=== PATIENT | female | born 1955 | race Caucasian/White ===

== ENCOUNTER → 2016-09-04 | Outpatient (CLI) | payer BC ==
--- NOTE | 2016-09-05 15:16 | MRI ---
EXAM DESCRIPTION: Right shoulder MRI CLINICAL HISTORY: 61 years, Female, IMPINGEMENT SYNDROME RT SHOULDER COMPARISON: None TECHNIQUE: MRI of the right shoulder was performed with multiplanar multi sequence imaging according to our usual protocol. FINDINGS: MRI right shoulder demonstrates advanced glenohumeral osteoarthritis with extensive mixed grade 3/4 chondrosis. Joint space narrowing is prominent. Inferior marginal osteophyte formation is present on both sides of the joint. There is extensive marginal irregularity of the glenoid labrum consistent with maceration of the labrum. There is no displaced fragment. There is a small glenohumeral joint effusion. There is thickening of the capsule in the axillary recess and there is synovial hypertrophy. This is consistent with adhesive capsulitis. Evaluation of the rotator cuff demonstrates extensive interstitial tearing of the infraspinatus and supraspinatus tendons. There is a very high-grade partial-thickness articular surface tear of the distal anterior supraspinatus representing greater than 90% of full-thickness. There is no muscular atrophy of the rotator cuff. Significant AC joint arthropathy is present with capsular thickening and edema. IMPRESSION: 1. Advanced glenohumeral arthritis 2. Adhesive capsulitis 3. High-grade partial-thickness tears of the supraspinatus and infraspinatus 4. Significant AC joint arthropathy Electronically signed by: Simone Grant MD 09/05/2016 3:15 PM CDT
== END ==
LOC: MRI 08:46
PROVIDERS: ATTEND Family Medicine
DX: M75.41 Impingement syndrome of right shoulder (principal); M75.111 Incomplete rotator cuff tear or rupture of right shoulder, not specified as traumatic; M13.811 Other specified arthritis, right shoulder; M75.01 Adhesive capsulitis of right shoulder

== ENCOUNTER → 2016-12-25 | Outpatient (CLI) | payer OTHER ==
--- NOTE | 2016-12-25 11:50 | MAM ---
EXAM DESCRIPTION: 3D Screening BILATERAL CLINICAL HISTORY: 61 yearsFemaleSCREENINGpostmenopausal. Hormone replacement five or more years ago.. COMPARISON: Digital screening bilateral examination 11/07/2015 and 06/29/2014.. No prior reports available. TECHNIQUE: Bilateral CC and MLO projection full-field images, 3-D tomosynthesis digital mammographic technique. Also bilateral synthesized CC/ MLO full-field images. CAD not utilized. FINDINGS: The breast parenchymal density pattern is: Scattered areas of fibroglandular density. No skin thickening or nipple retraction again noted is asymmetry of fibroglandular tissues more prevalent in the retroareolar left breast compared to the same region of the right breast. Bilateral solitary microcalcifications. Small right axillary lymph nodes. No focal, stellate mass or density, focal asymmetry , and no suspicious microcalcifications bilaterally. Stable mammograms compared to June 2014. IMPRESSION: BI-RADS CATEGORY: 2 - BENIGN FINDINGS. FOLLOW UP: Routine digital bilateral screening, one year interval from December 2016. Written communication explaining the findings and follow-up, will be mailed to the patient and referring health care provider. According to the [employer], yearly mammograms are recommended starting at age 40 and continuing as long as a woman is in good health. Any breast change noted on a breast self-exam should be reported promptly to the patient's healthcare provider. Breast MRI is recommended for women with an approximately 20-25% or greater lifetime risk of breast cancer, including women with a strong family history of breast or ovarian cancer and women who have been treated for Hodgkin's disease. A negative mammographic report should not delay tissue diagnosis in patients with significant clinical history or physical findings. Extremely dense breast tissue limits the sensitivity of digital mammography. Electronically signed by: Dick Molina MD 12/25/2016 11:48 AM CDT Workstation: [id number]
== END ==
LOC: MAMMO 10:53
PROVIDERS: ATTEND Family Medicine
DX: Z12.31 Encounter for screening mammogram for malignant neoplasm of breast (principal)

== ENCOUNTER → 2018-02-13 | Outpatient (CLI) | payer OTHER ==
--- NOTE | 2018-02-14 10:53 | MRI ---
MRI right shoulder without contrast INDICATION: Hip pain unspecified date of onset TECHNIQUE: Noncontrast MR imaging right hip FINDINGS: There is a left hip arthroplasty. There is a left convex lumbar scoliosis with asymmetric advanced degenerative disc disease L4-5. There is a moderate right hip effusion with CAM morphology of the femoral neck suggesting chronic femoral acetabular impingement. There is moderate to advanced osteoarthrosis of the right hip with diffuse degenerative chronic labral tear. No osteonecrosis or femoral neck fracture. There is para labral cyst formation and synovitis along the lateral margin of the superior labrum. Gluteal tendons are intact. Ill-defined ligamentum teres. Hamstring tendons are intact. IMPRESSION: Osteoarthrosis of the right hip moderate to advanced with degenerative labral tear and para labral cyst formation Prominent right hip effusion Left hip arthroplasty Asymmetric degenerative disc disease with degenerative endplate changes on the right L4-5 No acute fracture or osteonecrosis Electronically signed by: Romain Negron MD 02/14/2018 10:51 AM CDT
== END ==
LOC: MRI 11:53
PROVIDERS: ATTEND Nurse Practitioner Family
DX: S73.191A Other sprain of right hip, initial encounter (principal); M16.11 Unilateral primary osteoarthritis, right hip; M51.36 Other intervertebral disc degeneration, lumbar region; Z96.642 Presence of left artificial hip joint

== ENCOUNTER 2018-02-24 05:39 | Day surgery (SDC) | payer OTHER ==
[2018-02-24] MEDS ORDERED: LACTATED RINGERS 1,000 ML ONE (05:58)
[2018-02-24] MEDS ORDERED: LACTATED RINGERS 1,000 ML BAG IV ONE (06:45)
[2018-02-24] MEDS ORDERED: LEVALBUTEROL NEBS 1.25 MG/3 ML VIAL NEB ONE (06:46)
[2018-02-24] MEDS ORDERED: fentaNYL CITRATE INJ 50 MCG/ML AMP ONE (06:50)
[2018-02-24] MEDS ORDERED: MIDAZOLAM INJ 2 MG/2 ML VIAL ONE (06:50)
[2018-02-24] MEDS: LIDOCAINE 1% W/ EPINEPHRINE 20 ML VIAL INJ ONE ×2 (07:14→07:15)
[2018-02-24] MEDS: BUPIVACAINE 0.25% INJ 30 ML VIAL INJ ONE ×2 (07:14→07:15)
[2018-02-24] MEDS: methylPREDNISolone ACETATE 80 MG/ML VIAL ONE ×2 (07:14→07:15)
[2018-02-24 07:33] VITALS: TEMP 96.8
[2018-02-24 08:21] VITALS: BP 103/68; O2SAT 97
[2018-02-24] MEDS ORDERED: LIDOCAINE 1% 10 ML VIAL INJ ONE (10:00)
[2018-02-24] MEDS ORDERED: PROPOFOL 200 MG/20 ML VIAL IV ONE (10:00)
--- NOTE | 2018-03-04 08:35 | OP ---
DATE OF PROCEDURE: 02/24/18 PREOPERATIVE DIAGNOSIS: 1. Osteoarthritis of the hip. POSTOPERATIVE DIAGNOSIS: 1. Osteoarthritis of the hip. PROCEDURE: 1. Intraarticular injection. SURGEON: Jean-Claude Solano MD. SET UP OPERATOR TOOL: Dick Yap CST, SA-C. ANESTHESIA: Conscious sedation. COMPLICATIONS: None. FINDINGS: Advanced arthritis of the hip. INDICATION: Emilia has a history of hip pain that has been identified as coming from hip arthritis. She has had contralateral hip replacement in the past. She has tried conservative measures with her current issues, however, has failed to gain relief and continues to have pain that is affecting her activities on a daily basis. Because of the effects on her daily activities, she has requested hip injection. After discussing the risks, benefits and alternatives to that, the patient has given informed consent for that. PROCEDURE: The patient was brought to the Operating Room and placed in supine position. Conscious sedation was administered and the patient's groin was sterilely prepped. Following prepping of the groin, an 18-gauge spinal needle was passed under fluoroscopic imaging into the hip joint. Once the needle was into the hip joint, a combination of lidocaine and Depo-Medrol were injected. After injection, the needle was withdrawn. Pressure was held and a bandage was placed. The patient was then taken back to Recovery. POSTOPERATIVE PLAN: The patient will be weightbearing as tolerated. The patient will followup with us in about 2 weeks. #[id number] [facility]
== END 2018-02-24 08:10 | disposition home or self-care (01) ==
LOC: AMB 05:39
PROVIDERS: ATTEND Orthopaedic Surgery
DX: M16.11 Unilateral primary osteoarthritis, right hip (principal); I10 Essential (primary) hypertension; K21.9 Gastro-esophageal reflux disease without esophagitis; J45.909 Unspecified asthma, uncomplicated; Z79.899 Other long term (current) drug therapy
CPT/HCPCS: 01200; 20610; 76000; 94640; J1030; J2250; J3010; J3490; J7120; J7614

== ENCOUNTER → 2018-03-13 | Outpatient (CLI) | payer OTHER ==
--- NOTE | 2018-03-13 14:45 | MRI ---
EXAM DESCRIPTION: Brain w/wo Contrast: MRI. CLINICAL HISTORY: TIA. Evaluate pituitary gland. COMPARISON: Bilateral duplex ultrasound evaluation of the carotid vertebral arteries today. TECHNIQUE: Multiplanar, high-field MRI unit, multiple sequences , brain and pituitary gland, before and after standard dose gadolinium IV contrast. No adverse reactions. FINDINGS: The pituitary gland occupies approximately 50% of the sella turcica and is normal signal. Uniform enhancement with no areas of non-enhancement or hyper enhancement. The pituitary infundibulum is in the midline with no displacement. No suprasellar mass. Normal signal and enhancement of the optic chiasm, distal optic tracts, and proximal optic nerves. Small focal hyperintense FLAIR signal in the left frontal subcortical white matter just above the frontal horn of the left lateral ventricle. Also bilaterally in the subcortical white matter of the occipital lobes to the vertex. Subcortical white matter and the vertex of the posterior right parietal lobe. No hemorrhage or abnormal enhancement. Normal flow signal in the bilateral basal ganglia, normal enhancement with no hemorrhage. No diffusion restriction. Normal signal in the bilateral cerebellar hemispheres and brainstem with normal contrast enhancement, no hemorrhage, and no diffusion restriction. Cortical sulci, ventricles, and other CSF and subdural spaces are normally configured. No effacement or displacement. No midline shift. IACs are unremarkable with no mass effect or abnormal contrast enhancement.. Contour of the cerebellopontine angles is unremarkable with no abnormal contrast enhancement. Base of the cerebellar tonsils is at the level of the foramen magnum. The paranasal sinuses are unremarkable.. The bony calvarium is intact.. IMPRESSION: 1. Pituitary gland occupies approximately 50% of the sella turcica. Normal signal and enhancement with no focal lesions. No mass effect on the pituitary gland or the infundibulum. No suprasellar mass. Normal signal and enhancement in the optic chiasm. 2. Scattered foci of hyperintense FLAIR signal in the cerebral hemispheres. This is most likely age-related. Possibly early cerebral microvascular disease. Less likely demyelinating process vasculitis or inflammatory process. No diffusion restriction which indicates no evidence for acute or subacute infarction. Electronically signed by: Dick Molina MD 03/13/2018 2:43 PM CDT
--- NOTE | 2018-03-13 14:54 | US ---
EXAM DESCRIPTION: Carotid Duplex: ULTRASOUND. CLINICAL HISTORY: TRANSIENT CEREBRAL ISCHEMIC ATTACK, UNSPECIFIED COMPARISON: MRI scan of the brain and pituitary gland without and with gadolinium IV contrast. TECHNIQUE: Transcutaneous scanning utilizing aquino-scale and Doppler modes to evaluate the bilateral carotid systems and vertebral arteries. Percentage of diameter of stenosis or no stenosis recorded will be based upon NASCET criteria. FINDINGS: Peak systolic/end diastolic (CM-Sec) CCA Right 116/18 Left 136/0. ICA Right proximal 57/9, mid 62/19 62/19. Left proximal 48/13, mid 75/21. Vertebral Right 41/8 Left 52/10. ECA (PS Only) Right 76 left 65. ICA/CCA peak systolic ratio: Right 0.5 Left 0.6 ICA/CCA end diastolic ratio: Right 1.1 Left n/a Vertebral arteries: antegrade flow. Comments: Atherosclerotic calcifications in the right common carotid bulb and proximal right ICA. Similar on the left. Left mid CCA diameter stenosis 38%. 39% diameter stenosis in the bulb. 30% diameter stenosis in the right common carotid bulb. IMPRESSION: 1. Doppler evaluation of the bilateral carotid systems and vertebral arteries shows no hemodynamically significant stenoses. 2. No significant amount of plaque seen in the carotid arteries bilaterally. Bilateral vertebral arteries showed antegrade-cephalad flow. Electronically signed by: Dick Molina MD 03/13/2018 2:52 PM CDT
== END ==
LOC: MRI 10:14
PROVIDERS: ATTEND Family Medicine
DX: G45.9 Transient cerebral ischemic attack, unspecified (principal); I10 Essential (primary) hypertension

== ENCOUNTER → 2018-06-30 | Outpatient (CLI) | payer OTHER ==
--- NOTE | 2018-06-30 12:51 | MRI ---
EXAM DESCRIPTION: Cervical Spine: MRI. CLINICAL HISTORY: 62 years Female CERVICAL RADICULOPATHY COMPARISON: Noncontrast MRI scan cervical spine 03/27/2011. TECHNIQUE: Multiplanar, high-field MRI, multiple sequences, non-contrast Cervical spine. FINDINGS: C3-4: Disc desiccation with minimal disc space loss. Minimal irregularity of the endplates. Anterior endplate ridging. Posterior midline and right paracentral 3 mm disc bulge abutting the cord. Moderate canal narrowing. Small bilateral uncinate spurs with mild neural foraminal narrowing bilaterally. Bilateral facet joints are unremarkable. C4-5: Moderate disc space loss with disc desiccation. Endplate irregularities. Anterior disc bulge and spurs. Posterior midline 4 mm protrusion impressing on the cord with mild canal stenosis. Right side disc spur combination encroaching on the foramen with mild neural foraminal stenosis. Left side moderate neural foraminal narrowing by disc spur complex. Bilateral facet joints unremarkable. C5-6: Moderate disc desiccation and disc space loss. Anterior bulging and endplate ridging more left of midline than right. Anterior Modic type II endplate reactive changes. Posterior broad-based disc bulge 3 mm abutting the cord. Moderate canal narrowing. Bilateral uncinate spurs with disc bulge and mild to moderate neural foraminal narrowing. Bilateral facet joints unremarkable. C6-7: Disc desiccation and minimal disc space loss. Right posterior disc bulge 3 mm abutting the cord. Right paracentral mild canal stenosis. Moderate right neural foraminal narrowing and mild left neural foraminal narrowing. Facet joints are unremarkable. C7-T1: Normal signal in the disc with posterior bulge and disc space maintained. Thickening of the anterior ligament in the spinal canal. Mild canal narrowing. Bilateral facets are unremarkable. Mild bilateral neural foraminal narrowing. Normal signal in the C2-3 disc with no bulging. Disc space preserved. Canal and neural foramina are patent. Facet joints with arthrosis on the left unremarkable on the right. Spinal alignment mild kyphosis C2-C5.. No cord compression or cord edema. Atlantoaxial joint negative. Base of the cerebellar tonsils is above the foramen magnum. Paravertebral soft tissues are unremarkable. Vertebral bodies are not compressed at any level. Normal marrow signal in the remaining vertebral bodies and the posterior elements. IMPRESSION: 1. Posterior midline protrusion and spur at C4-5 impressing on the cord with mild canal stenosis. This has progressed since the prior study. Right side disc spur complex causing right neural foraminal stenosis. This is progressed since the prior study. Correlate for right C5 radiculopathy. 2. C5-6 posterior broad-based disc bulge abutting the cord. Slightly larger since the prior study. No canal or neural foraminal stenosis bilaterally, stable since the prior study. 3. C6-7 right posterior disc protrusion abutting the right ventral cord has enlarged slightly since the prior study. Right paracentral mild canal stenosis is new since the prior study. No neural foraminal stenosis. 4. Posterior midline and right paracentral C3-4 disc bulge abutting the cord. Bilateral uncinate spurs and bilateral mild neural foraminal narrowing. Stable since the prior study. Electronically signed by: Dick Molina MD 06/30/2018 12:49 PM [facility]
== END ==
LOC: MRI 06:50
PROVIDERS: ATTEND Family Medicine
DX: M50.10 Cervical disc disorder with radiculopathy, unspecified cervical region (principal)

== ENCOUNTER → 2018-07-21 | Outpatient (CLI) | payer OTHER | LOC: RESP 12:31 | PROVIDERS: ATTEND Orthopaedic Surgery | DX: Z01.818 Encounter for other preprocedural examination (principal) ==

== ENCOUNTER 2018-08-04 05:24 | Inpatient (IN) | payer OTHER ==
--- NOTE | 2018-08-03 09:46 | HP ---
CHIEF COMPLAINT: Left hip pain. HISTORY OF PRESENT ILLNESS: Emilia is a 62-year-old female with a history of severe right hip pain secondary to arthritis. She has attempted conservative measures which have included injections, however, she has failed to gain relief. Because of the failure of conservative measures, she has requested operative intervention. After discussing the risks, benefits and alternatives to that, she has given informed consent. PAST SURGICAL HISTORY: 1. Patellar tendon transfer. 2. Total hip arthroplasty. 3. Wrist open reduction and internal fixation. MEDICATIONS: 1. Bystolic. 2. Ambien. 3. Xyzal. 4. Benadryl. 5. Prometrium. 6. Pristiq. 7. Zorvolex. 8. Norvasc. 9. Lyrica. 10. Tramadol. ALLERGIES: NO KNOWN DRUG ALLERGIES. CODE STATUS: Full code. IMMUNIZATIONS: Up to date. FAMILY HISTORY: None pertinent to today's complaint. SOCIAL HISTORY: The patient does not smoke or use any illicit drugs. She does drink on occasion. REVIEW OF SYSTEMS: Negative except as indicated in the History of Present Illness. PHYSICAL EXAMINATION: VITAL SIGNS: Blood pressure 130/83. Pulse 75. Height 5'6". Weight 181 pounds. MENTAL STATUS: The patient is awake, alert, and is able to give a good history and participate in the physical. The patient is oriented to person, place and time. SKIN: Normal tone and turgor. HEENT: Normocephalic, atraumatic. Pupils equal, round and reactive. Mucosal membranes are moist. NECK: Normal range of motion. No thyromegaly, no lymphadenopathy. CHEST: Normal respiratory excursion. CARDIAC: Regular rate and rhythm. No murmurs, rubs or gallops. MUSCULOSKELETAL: She is extremely tender with any range of motion of the hip, but does maintain 80 degrees of flexion. She has antalgic gait. She has abduction to about 20 degrees, 0 internal rotation and about 10 degrees or external rotation. Sensation is intact. It is warm and well perfused. The bilateral upper extremities show minor pain with range of motion she has intact sensation. They are warm and well perfused. 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 IMAGING: X-rays show advanced degenerative changes. ASSESSMENT: 1. Endstage arthritis. PLAN: The plan at this point is for total hip arthroplasty. We have discussed the risks, benefits, and alternatives to that and the patient has given informed consent. #[id number] MTDD
[2018-08-04] MEDS ORDERED: VANCOMYCIN HCL INJ 1,000 MG VIAL IVPB ONE ×3 (05:57→20:09)
[2018-08-04] MEDS ORDERED: ceFAZolin SODIUM 1 GM VIAL ONE ×2 (05:57→06:27)
[2018-08-04] MEDS ORDERED: TRANEXAMIC ACID 1,000 MG/10 ML VIAL ONE ×2 (05:57→05:58)
[2018-08-04] MEDS ORDERED: SODIUM CHL 0.9% 100ML MINI-BAG 100 ML IVPB ONE (05:57)
[2018-08-04] MEDS ORDERED: LACTATED RINGERS 1,000 ML ONE (05:57)
[2018-08-04] MEDS ORDERED: SODIUM CHLORIDE 0.9% 250ML 250 ML ONE ×3 (05:58→20:08)
[2018-08-04] MEDS ORDERED: SODIUM CHLORIDE 0.9% 100ML 100 ML IVPB ONE (05:58)
[2018-08-04] MEDS ORDERED: BUPIVACAINE LIPOSOME 13.3 MG/ML VIAL INJ ONE (06:27)
[2018-08-04] MEDS ORDERED: MORPHINE SULFATE *EPIDURAL* 0.5 MG/ML VIAL ONE (06:28)
[2018-08-04] MEDS ORDERED: fentaNYL CITRATE INJ 50 MCG/ML AMP ONE (06:29)
[2018-08-04] MEDS ORDERED: MIDAZOLAM INJ 5 MG/5 ML VIAL ONE (06:29)
[2018-08-04] MEDS ORDERED: ROCURONIUM BROMIDE 10 MG/ML VIAL ONE (06:29)
[2018-08-04] MEDS ORDERED: ACETAMINOPHEN IV 1000MG 100 ML ONE (06:29)
[2018-08-04] MEDS ORDERED: traMADol HCL 50 MG TAB PO PRN (06:56)
[2018-08-04] MEDS ORDERED: MAGNESIUM HYDROXIDE 30 ML UD PO PRN (06:56)
[2018-08-04] MEDS ORDERED: MORPHINE SULFATE INJ 10 MG/ML VIAL IV PRN (06:56)
[2018-08-04] MEDS ORDERED: ZOLPIDEM TARTRATE 5 MG TAB PO PRN (06:56)
[2018-08-04] MEDS ORDERED: PROMETHAZINE HCL INJ 12.5 MG in SODIUM CHLORIDE 0.9% 50ML 50 ML IVPB PRN (06:56)
[2018-08-04] MEDS ORDERED: TEMAZEPAM 15 MG CAP PO PRN (06:56)
[2018-08-04] MEDS ORDERED: BENZOCAINE-MENTH LOZ (CEPACOL) 1 EA LOZ MT PRN (06:56)
[2018-08-04] MEDS ORDERED: ALUMINUM & MAGNESIUM HYDROXIDE 30 ML UD PO PRN (06:56)
[2018-08-04] MEDS ORDERED: DEX 5% W/NACL 0.45% 1000ML 1,000 ML IVS PRN (06:56)
[2018-08-04] MEDS ORDERED: SODIUM CHLORIDE 0.9% (FLUSH) 10 ML SYG IV PRN (06:56)
[2018-08-04] MEDS ORDERED: ACETAMINOPHEN 500 MG TAB PO PRN (06:56)
[2018-08-04] MEDS ORDERED: NALOXONE HCL INJ 0.4 MG/ML VIAL IV PRN (06:56)
[2018-08-04] MEDS ORDERED: PROMETHAZINE HCL INJ 25 MG in SODIUM CHLORIDE 0.9% 50ML 50 ML IVPB PRN (06:56)
[2018-08-04] MEDS ORDERED: TRANEXAMIC ACID INJ 1,000 MG in SODIUM CHLORIDE 0.9% 100ML 100 ML IVPB ONE (06:56)
[2018-08-04] MEDS ORDERED: MORPHINE SULFATE INJ 10 MG/ML VIAL IM PRN (06:56)
[2018-08-04] MEDS ORDERED: HYDROcodone 5MG/APAP 325MG 1 EA TAB PO PRN (06:56)
[2018-08-04] MEDS ORDERED: ACETAMINOPHEN 325 MG TAB PO PRN (06:56)
[2018-08-04] MEDS ORDERED: BISACODYL SUPPOSITORY 10 MG PR PRN (06:56)
[2018-08-04] MEDS ORDERED: IV SET AND CAP CHANGE INJ INJ SCH (07:00)
[2018-08-04] MEDS ORDERED: MORPHINE PCA 1 MG/ML 100 ML BAG IVPB SCH (07:00)
[2018-08-04] MEDS: ceFAZolin SODIUM 1 GM VIAL ONE ×3 (08:02→09:44)
[2018-08-04] MEDS: BUPIVACAINE 0.5% 30 ML VIAL INJ ONE ×2 (08:03→09:15)
[2018-08-04] MEDS: VANCOMYCIN HCL INJ 1,000 MG VIAL IVPB ONE ×3 (08:03→09:44)
[2018-08-04] MEDS: BUPIVACAINE LIPOSOME 13.3 MG/ML VIAL INJ ONE ×2 (08:05→09:15)
[2018-08-04] MEDS ORDERED: ELECTROLYTE-A 1,000 ML IVS ONE ×2 (08:22→09:45)
[2018-08-04] MEDS ORDERED: ONDANSETRON INJ 4 MG/2 ML VIAL IV ONE (10:00)
[2018-08-04] MEDS ORDERED: LIDOCAINE 1% 10 ML VIAL INJ ONE (10:00)
[2018-08-04] MEDS ORDERED: ePHEDrine SULF 50 MG/ML IV ONE (10:00)
[2018-08-04] MEDS ORDERED: DEXAMETHASONE INJ 10 MG/ML VIAL IV ONE (10:00)
[2018-08-04] MEDS ORDERED: KETOROLAC TROMETHAMINE INJ 30 MG/ML VIAL IV ONE (10:00)
[2018-08-04] MEDS ORDERED: raNITIdine HCL INJ 25 MG/ML VIAL IV ONE (10:00)
[2018-08-04] MEDS ORDERED: METOCLOPRAMIDE HCL INJ 10 MG/2 ML VIAL IV ONE (10:00)
[2018-08-04] MEDS ORDERED: diphenhydrAMINE HCL 50 MG/ML VIAL IV ONE (10:00)
[2018-08-04] MEDS ORDERED: PROPOFOL 200 MG/20 ML VIAL IV ONE (10:00)
[2018-08-04] MEDS: CELECOXIB 100 MG CAP PO SCH ×2 (11:51→17:27)
[2018-08-04] MEDS: MAGNESIUM OXIDE 400 MG TAB PO SCH (11:52)
--- NOTE | 2018-08-04 15:24 | RAD ---
EXAM: Pelvis and hip CLINICAL HISTORY: Pain COMPARISON STUDY: MRI pelvis February 13, 2018 TECHNICAL: AP pelvis and 2 views of the right hip FINDINGS: The pelvic ring is intact and negative. Both hips have been replaced. Both hips are in anatomic alignment. There are severe degenerative changes at the lower lumbar levels, incompletely imaged. Calcification lateral to the right acetabulum appears chronic. IMPRESSION: 1. Bilateral hip prosthesis in alignment. 2. No acute fracture. 3. Severe degenerative disc changes at the lower lumbar spine. Electronically signed by: Andrei Narayan MD 08/04/2018 3:20 PM [facility]
--- NOTE | 2018-08-04 15:24 | RAD ---
EXAM: Pelvis and hip CLINICAL HISTORY: Pain COMPARISON STUDY: MRI pelvis February 13, 2018 TECHNICAL: AP pelvis and 2 views of the right hip FINDINGS: The pelvic ring is intact and negative. Both hips have been replaced. Both hips are in anatomic alignment. There are severe degenerative changes at the lower lumbar levels, incompletely imaged. Calcification lateral to the right acetabulum appears chronic. IMPRESSION: 1. Bilateral hip prosthesis in alignment. 2. No acute fracture. 3. Severe degenerative disc changes at the lower lumbar spine. Electronically signed by: Andrei Narayan MD 08/04/2018 3:20 PM [facility]
[2018-08-04] MEDS ORDERED: ceFAZolin SODIUM 2 GRAMS PREMI 50 ML IVPB ONE ×2 (15:44→20:09)
[2018-08-04] MEDS: ceFAZolin SODIUM 2 GRAMS PREMI 2 GM in PREMIX BAG 1 BAG IVPB SCH ×2 (15:55→23:59)
[2018-08-04] MEDS: VANCOMYCIN HCL INJ 1,000 MG in SODIUM CHLORIDE 0.9% 250ML 250 ML IVPB SCH (17:27)
[2018-08-04] MEDS: DESMOPRESSIN ACETATE 0.2 MG PO SCH (17:33)
[2018-08-04] MEDS ORDERED: ENOXAPARIN SODIUM 30 MG/0.3 ML SYG SUBCU ONE (20:10)
[2018-08-04] MEDS ORDERED: NON-FORMULARY MEDICATION 1 EA MIS (Diphenhydramine Hcl [Benadryl] 50 MG) PO SCH (21:00)
--- NOTE | 2018-08-04 21:13 | CONS ---
DATE OF CONSULTATION: 08/04/18 SUPERVISING PHYSICIAN: Tommy Arita M.D. HISTORY OF PRESENT ILLNESS: Ms. Beverly is a 62 year-old female patient with a longstanding history of bilateral hip pain. She previously had her left hip replaced in 01/2010 due to avascular necrosis. Her right hip pain had been progressing over the last few years. She had tried outpatient measures for conservative treatment, including injections and NSAIDs but had failed to receive any significant relief over the last year. Due to ongoing pain and failure to gain any relief with conservative measures she requested that Dr. Solano do operative intervention to include a total right hip arthroplasty. Today, she was admitted for elective total right hip arthroplasty. She had no intraoperative complications. She was seen in stable condition in the immediate postoperative state. PAST MEDICAL HISTORY: 1. Idiopathic diabetes insipidus in 1996. 2. Hypertension, stable. 3. Idiopathic avascular necrosis of the left hip status post replacement in 2009. 4. Mild anxiety. 5. Chronic insomnia. 6. Transient ischemic attack times 1 in 2017 most likely due to hypertension. No residual deficits. MRI within normal limits. 7. Seasonal allergies on antihistamines and immunotherapy injections. 8. Osteoarthritis bilateral shoulders and right hip. PAST SURGICAL HISTORY: 1. Patellar tendon transfer and cartilage repair of right hip from athletic injury in 1973. 2. Left hip arthroplasty in 02/2010. 3. Right wrist fracture with open reduction and internal fixation in 11/2010. OUTPATIENT MEDICATIONS: 1. Bystolic 5 mg at h.s. 2. Ambien 10 mg at h.s. 3. Xyzal 5 mg a h.s. 4. Benadryl 15 mg at h.s. 5. Prometrium 200 mg h.s. 6. Pristiq 50 mg at h.s. 7. Aspirin 81 mg at h.s. 8. Zorvolex 35 mg every 6 hours as needed. 9. DDAVP 0.2 mg at 0600 and 1800 and as needed. 10. Norvasc 5 mg daily. 11. Lyrica 100 mg t.i.d. ALLERGIES: NO KNOWN DRUG ALLERGIES. FAMILY HISTORY: Unknown. 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 She is and has 2 children. Lives in [place]. She does have a history of cigarette smoking approximately 10 packs a year but quit in 1996. She drinks alcohol on a social basis. Denies any illicit drug use. PHYSICAL EXAMINATION: VITAL SIGNS: Temperature 97.6, pulse 74, blood pressure 112/82, respirations 16, satting 96% on 2 liters nasal cannula. Admission weight 83.4 kg. GENERAL: Emilia is seen in the immediate postoperative condition. She appears to be in no acute distress. Very pleasant and reports to be well controlled on pain. HEENT: Tympanic membranes are clear bilaterally. Oropharynx is pink and moist without any lesions. NECK: Supple with full range of motion. No jugular venous distention. CHEST: Clear to auscultation bilaterally without any rhonchi, wheezing or rales. HEART: Regular rate and rhythm without appreciable murmurs, gallops, or rubs. ABDOMEN: Soft, non-tender. Positive bowel sounds. EXTREMITIES: Without any clubbing, cyanosis or edema. On the right hip is a large surgical dressing which is clean and dry. Distally pulses were strong. Capillary refill is brisk. NEUROLOGIC: She is alert and oriented times three. No reported paresthesias to bilateral lower extremities. Cranial nerves II-XII are grossly intact. LABORATORY: Postoperative H&H, BMP and magnesium are pending. ASSESSMENT: 1. Status post total right hip arthroplasty, postoperative day #0, performed by Dr. Jean-Claude Solano, orthopedic surgeon. 2. Chronic arthritis. 3. Intractable pain right hip failing to respond to outpatient treatment measures requiring surgical intervention as noted in #1 for symptom control. 4. History of idiopathic diabetes insipidus on DDAVP. 5. Hypertension, stable. 6. Mild anxiety. 7. Chronic insomnia on Benadryl and Ambien. 8. History of previous transient ischemic attack in 2018 due to hypertension with no residual deficits with MRI being within normal limits. 9. Seasonal allergies on both antihistamines and immunotherapy injections. PLAN: Will plan to follow Emilia as she recovers through her postoperative phase with physical therapy and rehabilitation. She did ambulate approximately 65 feet today with partial weightbearing. Anticipate discharging either tomorrow or to [facility]. Will continue to follow the patient as needed. Will update her home medications once those have been verified and as appropriate. She will be on DVT prophylaxis per protocol. Until she can transition to outpatient management, will continue to monitor and treat as needed. [facility][id number] [facility]
[2018-08-04] MEDS: DOCUSATE CALCIUM 240 MG CAP PO SCH (21:29)
[2018-08-04] MEDS: ASPIRIN (ENTERIC COATED) 81 MG TAB PO SCH (21:29)
[2018-08-04] MEDS: NEBIVOLOL 2.5 MG TAB PO SCH (21:30)
[2018-08-04] MEDS: diphenhydrAMINE HCL 25 MG CAP PO SCH (21:30)
[2018-08-04] MEDS: NON-FORMULARY MEDICATION 1 EA MIS (Desvenlafaxine Succinate [Pristiq] 50 MG) PO SCH (21:31)
[2018-08-04] MEDS: PROGESTERONE MICRONIZED 200 MG PO SCH (21:32)
[2018-08-04] MEDS: [UNRECOGNIZED DRUG - REMARK] PO SCH (21:33)
[2018-08-04] MEDS: ENOXAPARIN SODIUM 30 MG/0.3 ML SYG SUBCU SCH (21:33)
[2018-08-04] MEDS: ZOLPIDEM TARTRATE 10 MG TAB PO PRN (21:39)
[2018-08-05] MEDS: DESMOPRESSIN ACETATE 0.2 MG PO SCH ×2 (05:47→17:28)
[2018-08-05] MEDS: VANCOMYCIN HCL INJ 1,000 MG in SODIUM CHLORIDE 0.9% 250ML 250 ML IVPB SCH (05:48)
[2018-08-05] MEDS: ALBUTEROL SULFATE 2.5 MG/3 ML VIAL NEB PRN ×2 (06:37→20:45)
[2018-08-05] MEDS ORDERED: ceFAZolin SODIUM 2 GRAMS PREMI 50 ML IVPB ONE (07:59)
[2018-08-05] MEDS ORDERED: HYDROcodone 10MG/APAP 325MG 1 EA TAB ONE (08:03)
[2018-08-05] MEDS: CELECOXIB 100 MG CAP PO SCH ×2 (08:09→17:27)
[2018-08-05] MEDS: HYDROcodone 10MG/APAP 325MG 1 EA TAB PO PRN ×4 (08:10→22:22)
[2018-08-05] MEDS: CYCLOBENZAPRINE HCL 10 MG TAB PO PRN ×2 (08:10→21:20)
[2018-08-05] MEDS: ceFAZolin SODIUM 2 GRAMS PREMI 2 GM in PREMIX BAG 1 BAG IVPB SCH (08:12)
[2018-08-05] MEDS: ONDANSETRON INJ 4 MG/2 ML VIAL IV PRN ×2 (08:43→14:00)
[2018-08-05] MEDS ORDERED: NON-FORMULARY MEDICATION 1 EA MIS (Fluticasone Furoate-Vilanterol [Breo Ellipta 100-25 Mcg IN SCH (09:00)
[2018-08-05] MEDS: MAGNESIUM OXIDE 400 MG TAB PO SCH (09:44)
[2018-08-05] MEDS: amLODIPine BESYLATE 5 MG TAB PO SCH (09:44)
[2018-08-05] MEDS: POLYETHYLENE GLYCOL 3350 17 GM PCKT PO SCH (09:45)
--- NOTE | 2018-08-05 10:42 | OP ---
DATE OF PROCEDURE: 08/04/18 PREOPERATIVE DIAGNOSIS: 1. Endstage osteoarthritis of the right hip. POSTOPERATIVE DIAGNOSIS: 1. Endstage osteoarthritis of the right hip. PROCEDURE: 1. Right total hip arthroplasty. SURGEON: Jean-Claude Solano MD. HOT HEADER OPERATOR: Dick Yap CST, SA-C. ANESTHESIA: General anesthesia. COMPLICATIONS: None. FINDINGS: Severe arthritis of the hip. INDICATION: Emilia is a 62-year-old female with a history of severe pain in the hip secondary to osteoarthritis. She has had conservative measures, however, has failed to gain relief and it has affected her daily function. Because of her ongoing pain and failure of conservative measures, she has requested operative intervention. After discussing the risks, benefits and alternatives to operative therapy, the patient has given informed consent for total hip arthroplasty. PROCEDURE: The patient was brought to the Operating Room and placed in supine position. General anesthesia was induced and the patient was transitioned into the decubitus position. Following transitioning into the decubitus position, an incision was made centered on the greater trochanter. Dissection was carried down to the iliotibial band, which was split along the course of its fibers. Following that, the abductor musculature was identified. The anterior one-third of the abductor musculature was elevated. A capsulotomy was performed. The hip was dislocated and primary femoral neck cut was made. The acetabulum was identified and the labrum was removed. Subsequent reaming was undertaken and a size 51 achieved bleeding bone bed. Trial was impacted and found to fit well. Bone graft which had been harvested from the femoral head was placed into the acetabulum and the final cup was impacted. Multiple screws were used to augment the fixation of the cup. A liner was placed and the femoral canal was exposed. Following exposure of the femoral canal, it was sequentially broached to a size 6 stem. Trial head was placed and the hip was reduced. It was taken through a range of motion and there was no evidence of impending dislocation or instability. There was no impingement. Leg lengths appeared to be clinically equal. Following trialing, the hip was dislocated and the femoral component was removed. The wound was very thoroughly irrigated. The final component was impacted. Again, the hip was taken through a range of motion and there was no evidence of instability or impingement. The wound was very thoroughly irrigated and closed with reapproximation of the abductor musculature in anatomic fashion. The iliotibial band was closed. The skin was closed with a combination of running and interrupted subcuticular stitches. Sterile dressings were placed. The patient was awoken from anesthesia and taken to the Recovery Room. POSTOPERATIVE PLAN: The patient will be partial weightbearing on postoperative day 1. COMPONENTS: Berta Accolade II stem size 6, Tritanium cup size 52 with 10 degree elevated liner, 32 mm head. #[id number] [facility]
--- NOTE | 2018-08-05 11:02 | PN ---
DATE: 08/04/18 POSTOPERATIVE CHECK SUBJECTIVE: Emilia is doing well and she has no pain at all at this point. She has already requested to get out of bed. OBJECTIVE: Afebrile. Vital signs stable. Dressing is clean, dry and intact. ASSESSMENT: Status post total hip arthroplasty. PLAN: The plan at this point is for her to begin partial weightbearing on postoperative day 1. #[id number] MTDD
--- NOTE | 2018-08-05 11:03 | PN ---
DATE: 08/05/18 SUBJECTIVE: Emilia is doing well and was able to get out of bed yesterday and walk 65 feet. OBJECTIVE: Afebrile. Vital signs stable. Dressing is clean, dry and intact. ASSESSMENT: Status post total hip arthroplasty. PLAN: The plan at this point is for her to continue with partial weightbearing. #[id number] MTDD
[2018-08-05] MEDS: ENOXAPARIN SODIUM 30 MG/0.3 ML SYG SUBCU SCH ×2 (11:19→21:20)
[2018-08-05] MEDS: PREGABALIN 100 MG CAP PO SCH ×3 (11:19→21:20)
--- NOTE | 2018-08-05 18:11 | PN ---
DATE: 08/05/18 SUPERVISING PHYSICIAN: Tommy Arita M.D. SUBJECTIVE: The patient had a good night. She has had good pain control. She has remained afebrile. She did have a little bit of nausea but no vomiting this morning with initiation of food. OBJECTIVE: VITAL SIGNS: Temperature 98, pulse 84, blood pressure 112/68, respirations 18, satting 92 to 97% on room air. GENERAL: The patient is comfortable. She has just worked with physical therapy. CHEST: Lungs are clear to auscultation. HEART: Regular rate and rhythm. ABDOMEN: ASSESSMENT: PLAN: #[id number] MTDD
--- NOTE | 2018-08-05 18:23 | PN ---
DATE: 08/05/18 SUPERVISING PHYSICIAN: Tommy Arita M.D. SUBJECTIVE: The patient had a good night. She has had good pain control. She has remained afebrile. She did have a little bit of nausea but no vomiting this morning with initiation of food. OBJECTIVE: VITAL SIGNS: Temperature 98, pulse 84, blood pressure 112/68, respirations 18, satting 92 to 97% on room air. GENERAL: The patient is comfortable. She has just worked with physical therapy. CHEST: Lungs are clear to auscultation. HEART: Regular rate and rhythm. ABDOMEN: Soft, non-tender. Positive bowel sounds. EXTREMITIES: Bulky dressing remains in place on the right hip. It is clean and dry with distal pulses being strong. Capillary refill is brisk. NEUROLOGIC: She is alert and oriented times three. LABORATORY: Postoperative H&H is 11.4 and 34.0 respectively with chemistry showing sodium 129, potassium 3.3, glucose 124, BUN 6, creatinine 0.62, magnesium 1.8. Drug screen was negative. MICROBIOLOGY: No specimens. RADIOLOGY: Radiographic studies were reviewed. ASSESSMENT: 1. Status post total right hip arthroplasty, postoperative day #1, performed by Dr. Jean-Claude Solano, orthopedic surgeon. 2. Chronic arthritis. 3. Intractable pain right hip failing to respond to outpatient treatment measures requiring surgical intervention as noted in #1 for symptom control. 4. History of idiopathic diabetes insipidus on DDAVP. 5. Hypertension, stable. 6. Mild anxiety. 7. Chronic insomnia on Benadryl and Ambien. 8. History of previous transient ischemic attack in 2018 due to hypertension with no residual deficits with MRI being within normal limits. 9. Seasonal allergies on both antihistamines and immunotherapy injections. PLAN: Will continue to follow the patient as she goes along through recovery phase with physical therapy. Anticipation of discharging tomorrow to [facility]. She is again encouraged to have good pulmonary hygiene. She will need a prescription for a walker prior to discharge. Until she can discharge to outpatient management will continue to monitor and treat as needed. #[id number] MTDD
[2018-08-05] MEDS: diphenhydrAMINE HCL 25 MG CAP PO SCH (21:19)
[2018-08-05] MEDS: ZOLPIDEM TARTRATE 10 MG TAB PO PRN (21:20)
[2018-08-05] MEDS: DOCUSATE CALCIUM 240 MG CAP PO SCH (21:20)
[2018-08-05] MEDS: [UNRECOGNIZED DRUG - REMARK] PO SCH (21:20)
[2018-08-05] MEDS: ASPIRIN (ENTERIC COATED) 81 MG TAB PO SCH (21:20)
[2018-08-05] MEDS: NEBIVOLOL 2.5 MG TAB PO SCH (21:20)
[2018-08-05] MEDS: PROGESTERONE MICRONIZED 200 MG PO SCH (21:22)
[2018-08-05] MEDS: NON-FORMULARY MEDICATION 1 EA MIS (Desvenlafaxine Succinate [Pristiq] 50 MG) PO SCH (21:23)
[2018-08-06] MEDS: HYDROcodone 10MG/APAP 325MG 1 EA TAB PO PRN ×3 (02:52→13:25)
[2018-08-06] MEDS: CYCLOBENZAPRINE HCL 10 MG TAB PO PRN ×2 (03:15→13:25)
[2018-08-06] MEDS: DESMOPRESSIN ACETATE 0.2 MG PO SCH (05:58)
[2018-08-06] MEDS: CELECOXIB 100 MG CAP PO SCH (07:59)
[2018-08-06] MEDS ORDERED: NON-FORMULARY MEDICATION 1 EA MIS (Fluticasone Furoate-Vilanterol [Breo Ellipta 100-25 Mcg IN SCH (08:00)
[2018-08-06] MEDS: PREGABALIN 100 MG CAP PO SCH ×2 (08:56→14:10)
[2018-08-06] MEDS: amLODIPine BESYLATE 5 MG TAB PO SCH (08:56)
[2018-08-06] MEDS: MAGNESIUM OXIDE 400 MG TAB PO SCH (08:56)
[2018-08-06] MEDS: POLYETHYLENE GLYCOL 3350 17 GM PCKT PO SCH (08:56)
[2018-08-06] MEDS ORDERED: SODIUM CHLORIDE 0.9% (FLUSH) 10 ML SYG IV SCH (09:00)
[2018-08-06] MEDS: ENOXAPARIN SODIUM 30 MG/0.3 ML SYG SUBCU SCH (11:40)
[2018-08-06 13:37] VITALS: BP 138/75; TEMP 97.8; O2SAT 98
[2018-08-07] MEDS ORDERED: BISACODYL SUPPOSITORY 10 MG PR ONE (21:00)
[2018-08-07] MEDS ORDERED: MAGNESIUM HYDROXIDE 30 ML UD PO ONE (21:00)
--- NOTE | 2018-08-17 19:22 | DS ---
SUPERVISING PHYSICIAN: Tommy Arita M.D. ADMISSION DIAGNOSIS: 1. Status post total right hip arthroplasty, postoperative day #0, performed by Dr. Jean-Claude Solano, orthopedic surgeon. 2. Chronic arthritis. 3. Intractable pain right hip failing to respond to outpatient treatment measures requiring surgical intervention as noted in #1 for symptom control. 4. History of idiopathic diabetes insipidus on DDAVP. 5. Hypertension, stable. 6. Mild anxiety. 7. Chronic insomnia on Benadryl and Ambien. 8. History of previous transient ischemic attack in 2018 due to hypertension with no residual deficits with MRI being within normal limits. 9. Seasonal allergies on both antihistamines and immunotherapy injections. DISCHARGE DIAGNOSIS: 1. Status post total right hip arthroplasty, postoperative day #2, performed by Dr. Jean-Claude Solano, orthopedic surgeon. 2. Chronic arthritis. 3. Intractable pain right hip failing to respond to outpatient treatment measures requiring surgical intervention as noted in #1 for symptom control. 4. History of idiopathic diabetes insipidus on DDAVP. 5. Hypertension, stable. 6. Mild anxiety. 7. Chronic insomnia on Benadryl and Ambien. 8. History of previous transient ischemic attack in 2018 due to hypertension with no residual deficits with MRI being within normal limits. 9. Seasonal allergies on both antihistamines and immunotherapy injections. REASON FOR HOSPITALIZATION: Ms. Beverly is a 62 year-old female patient with a longstanding history of bilateral hip pain. She previously had her left hip replaced in 01/2010 due to avascular necrosis. Her right hip pain had been progressing over the last few years. She had tried outpatient measures for conservative treatment, including injections and NSAIDs but had failed to receive any significant relief over the last year. Due to ongoing pain and failure to gain any relief with conservative measures she requested that Dr. Solano do operative intervention to include a total right hip arthroplasty. Today, she was admitted for elective total right hip arthroplasty. She had no intraoperative complications. She was seen in stable condition in the immediate postoperative state. LABORATORY STUDIES: Postoperative hemoglobin 11.4, hematocrit 34.0. Chemistries show sodium 129, potassium 3.3, BUN 6, creatinine 0.62, glucose 124, magnesium 1.8. Urine toxicology screen was negative. CONSULTATIONS: Medical consultation by hospitalist services. Please see that note for full details. PROCEDURE: Total right hip arthroplasty performed by Dr. Jean-Claude Solano. Please see his operative report for full details. HOSPITAL COURSE: Ms. Beverly was admitted on 08/04/18 for elective total right hip arthroplasty. She had no intraoperative complications. She recovered with no complications postoperatively and was to participate with her physical therapy and actually was walking on postoperative day 0. She progressed well with physical therapy well enough to continue with outpatient management. PLAN: Ms. Beverly was discharged on 08/06/18 with instructions to followup with Dr. Solano as scheduled. Care instructions for joint replacement were provided as per Dr. Solano's written instructions. She was to shower and no tub baths. Activities were increase activities as tolerated per Physical Therapy utilizing a walker. Diet was regular diet as tolerated. She was to continue her home medications as instructed. Return to the hospital or call Dr. Solano if she had any questions or other concerning symptoms. Medications prescribed at discharge included: 1. Broad Top 5/325 every 4 hours, #30, written by Dr. Solano. 2. Xarelto 10 mg, #33. All other medications prior to hospitalization were continued as is: 1. Lyrica 100 mg t.i.d. 2. Breo ellipta 100-25 mcg inhaled 1 every AM. 3. Amlodipine 5 mg daily. 4. DDAVP 0.2 mg b.i.d. 5. Aspirin low dose 81 mg daily. 6. Progesterone Micronized 200 mg daily. 7. Pristiq 50 mg daily. 8. Xyzal 5 mg at bedtime. 9. Benadryl 50 mg at bedtime. 10. Bystolic 2.5 mg at bedtime. 11. Zolpidem tartrate 10 mg at bedtime. Condition on discharge was stable and improving. DISPOSITION: The patient was discharged to family members. #[id number] MTDD
== END 2018-08-06 14:35 | disposition home or self-care (01) | DRG 470 ==
LOC: AMB 05:24 → MS 11:00
PROVIDERS: ADMIT Orthopaedic Surgery; ATTEND Orthopaedic Surgery
PROC: 0SR901A Replacement of Right Hip Joint with Metal Synthetic Substitute, Uncemented, Open Approach (ICD-10-PCS; principal; 2018-08-04 07:07)
DX: M16.11 Unilateral primary osteoarthritis, right hip (principal); E23.2 Diabetes insipidus; I10 Essential (primary) hypertension; F41.9 Anxiety disorder, unspecified; F51.04 Psychophysiologic insomnia; J30.2 Other seasonal allergic rhinitis; Z86.73 Personal history of transient ischemic attack (TIA), and cerebral infarction without residual deficits; Z96.642 Presence of left artificial hip joint; Z79.82 Long term (current) use of aspirin; Z87.891 Personal history of nicotine dependence

== ENCOUNTER → 2018-09-04 | Outpatient (CLI) | payer OTHER ==
--- NOTE | 2018-09-04 20:43 | US ---
EXAM DESCRIPTION: Pelvis Transvaginal: Ultrasound. CLINICAL HISTORY: 63 years Female POST MENOPAUSAL VAGINAL BLEEDING COMPARISON: None. TECHNIQUE: Endovaginal scanning; [place]-scale and Doppler modes. FINDINGS: Uterus 7.8 x 4.9 x 4.2 cm. Endometrial thickness is 5.3 mm. Myometrium appears homogeneous. Isoechoic mass posterior uterus and posterior to the endometrial cavity measuring 2.6 x 2.3 x 1.8 cm. Slightly hyperechoic mass anterior uterus anterior to the endometrial cavity measuring 2.5 x 1.8 x 1.6 cm.. Uterus not retroflexed. Cervix contains small cysts.. Cul-de-sac contains no fluid. Right ovary 1.5 x 1.6 x 0.9 cm. Color Doppler vascularity. No follicles or cysts. No adnexal mass or free fluid. Left ovary 1.6 x 1.4 x 1.0 cm. Color Doppler vascularity. No follicles or cysts. No adnexal mass or free fluid. IMPRESSION: 1. Uterus in normal position with borderline thickening of the endometrium but no endometrial fluid. Fibroids anterior and posterior to the endometrial cavity measuring 2.6 cm and 2.5 cm. Small cysts are probably nabothian cysts in the cervix. Consider gynecological consult. 2. Ovaries are not enlarged. Bilateral vascularity noted. No adnexal mass or fluid. Electronically signed by: Dick Molina MD 09/04/2018 8:40 PM CDT
--- NOTE | 2018-09-08 14:13 | MAM ---
EXAM DESCRIPTION: 3D Screening BILATERAL : Digital Mammography. CLINICAL HISTORY: 63 years Female SCREENING . No complaints. Family history unknown. Childbirth. Postmenopausal 9 years. Currently on HRT. Lifetime risk of developing breast cancer (Tyrer-Cuzick model)(%): 7.0. COMPARISON: Bilateral screening digital breast tomosynthesis 12/25/2016. TECHNIQUE: Bilateral CC and MLO projection full-field images, digital tomosynthesis mammographic technique. Bilateral digital 2-D full-field MLO images. CAD not available for tomosynthesis or 2-D images. FINDINGS: The breast parenchymal density pattern is: Heterogeneously dense breast tissue, which may obscure small masses. No skin thickening or nipple retraction. Scattered solitary calcifications bilaterally. No new focal, stellate mass or density, focal asymmetry , and no suspicious microcalcifications bilaterally. Stable mammograms compared to prior study. IMPRESSION: Benign exam. BIRAD CATEGORY: 2 BENIGN FINDINGS. RECOMMENDATIONS: FOLLOW UP: Routine digital bilateral mammographic screening, one year interval from August 2018. Written communication explaining the IMPRESSION and follow-up, will be mailed to the patient and referring health care provider. According to the [employer], yearly mammograms are recommended starting at age 40 and continuing as long as a woman is in good health. Any breast change noted on a breast self-exam should be reported promptly to the patient's healthcare provider. Breast MRI is recommended for women with an approximately 20-25% or greater lifetime risk of breast cancer, including women with a strong family history of breast or ovarian cancer and women who have been treated for Hodgkin's disease. A negative mammographic report should not delay tissue diagnosis in patients with significant clinical history or physical findings. Extremely dense breast tissue limits the sensitivity of digital mammography. Electronically signed by: Dick Molina MD 09/08/2018 2:10 PM CDT
== END ==
LOC: MAMMO 13:00
PROVIDERS: ATTEND Nurse Practitioner Family
DX: Z12.31 Encounter for screening mammogram for malignant neoplasm of breast (principal); D25.9 Leiomyoma of uterus, unspecified; N88.8 Other specified noninflammatory disorders of cervix uteri